=== PATIENT | male | born 1955 | race American Indian/Alaskan Native ===

== ENCOUNTER 2016-11-14 22:17 | Emergency (ER) | payer BC, OTHER ==
[2016-11-15 00:33] LABS: Basophils % (Auto) 0.2 % (0.0-1.8); Eosinophils % (Auto) 1.4 % (0.0-4.3); Hematocrit 41.7 % (35.5-45.6); Mean Corpuscular HGB Conc 34 % (32-34); Mean Corpuscular Hemoglobin 33 pg (28-32); Mean Corpuscular Volume 98 fl (84-94); Platelet Count 217 K/mm3 (140-440); Red Blood Count 4.25 M/mm3 (3.65-5.03); Red Cell Distribution Width 12.7 % (13.2-15.2); White Blood Count 5.7 K/mm3 (4.5-11.0)
[2016-11-15 01:17] LABS: Anion Gap 20 mmol/L; BUN/Creatinine Ratio 22.85; Blood Urea Nitrogen 16 mg/dL (9-20); Calcium 9.4 mg/dL (8.4-10.2); Carbon Dioxide 25 mmol/L (22-30); Chloride 96.1 mmol/L (98-107); Glucose 108 mg/dL (75-100); Potassium 3.8 mmol/L (3.6-5.0); Sodium 137 mmol/L (137-145)
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
[2016-11-15] MEDS ORDERED: NORCO 10/325 PO ONE (03:15)
[2016-11-15] MEDS ORDERED: COZAAR PO ONE (04:17)
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
[2016-11-15 04:49] VITALS: BP 120/74
== END 2016-11-15 04:47 | disposition home or self-care (01) ==
LOC: ED 22:17
DX: R68.84 Jaw pain (principal); K21.9 Gastro-esophageal reflux disease without esophagitis; Z91.011 Allergy to milk products; Y04.2XXA Assault by strike against or bumped into by another person, initial encounter; Y99.9 Unspecified external cause status; Y93.89 Activity, other specified; Y92.89 Other specified places as the place of occurrence of the external cause
CPT/HCPCS: 36415; 70450; 80048; 85025